=== PATIENT | male | born 2000 | race Caucasian/White ===

== ENCOUNTER 2023-06-22 12:42 | Emergency (ER) | payer SELFPAY ==
[~2023-06-22] VITALS: Ht 175.3 cm; Wt 67.0 kg
[2023-06-22 13:07] VITALS: O2SAT 99
[2023-06-22] MEDS ORDERED: TETANUS, DIPHTHERIA, PERTUSSIS VAC/PF 0.5ML (>10YR OLD) IM ONE ×2 (14:00→17:00)
[2023-06-22] MEDS ORDERED: BACITRACIN ZINC OINT UDPKT TOP ONE (14:00)
[2023-06-22] MEDS ORDERED: LIDOCAINE HCL/PF 1% 10 MG/ML 5ML VIAL INFIL ONE (14:00)
[2023-06-22 17:19] VITALS: BP 116/78; PULSE 74; RESP 14; TEMP 97.4
[2023-06-23] MEDS ORDERED: IBUP-2028 MT ×2 (11:58→12:01)
== END 2023-06-22 17:21 | disposition home or self-care (01) ==
LOC: ER 14:14
DX: S61.213A Laceration without foreign body of left middle finger without damage to nail, initial encounter (principal); X58.XXXA Exposure to other specified factors, initial encounter; Y93.89 Activity, other specified; Y92.89 Other specified places as the place of occurrence of the external cause; Y99.8 Other external cause status
CPT/HCPCS: 73130; 90715; 12004; 90471; 99283; J3490; Z7610 ×2